=== PATIENT | male | born 1960 | race African-American/Black ===

== ENCOUNTER 2018-08-29 14:50 | Emergency (ER) | payer OTHER ==
[2018-08-29 15:59] LABS: Absolute Lymphocytes (CBC) 3.3 K/uL (0.7-4.9); Absolute Monocytes 1.1 K/uL (0.1-1.3); Absolute Neutrophil 7.8 K/uL (1.8-8.0); Basophils % 0.6 % (0-1.3); Eosinophils % 1.4 % (0-4.4); Hematocrit 39.2 % (39.6-49.0); Lymphocytes % 26.3 % (15.3-44.8); MCH 32.9 pg (27.0-35.0); MCV 99.1 fL (80-100); MPV 10.4 fL (7.6-11.3); RBC Red Blood Cell Count 3.96 M/uL (4.33-5.43)
[2018-08-29 16:01] LABS: Protime INR 0.94
[2018-08-29 16:25] LABS: ALT/SGPT 25 U/L (12-78); AST/SGOT 12 U/L (15-37); Albumin 3.4 g/dL (3.4-5.0); Alkaline Phosphatase 97 U/L (45-117); BUN Blood Urea Nitrogen 40 mg/dL (7-18); Bicarbonate 23 mmol/L (21-32); Bilirubin Direct < 0.1 mg/dL (0-0.2); Bilirubin Total 0.2 mg/dL (0.2-1.0); Glucose Level 122 mg/dL (74-106); Magnesium 2.2 mg/dL (1.8-2.4); NT PRO-BNP 71 pg/mL (<125); Potassium 4.1 mmol/L (3.5-5.1); Protein, Total 7.4 g/dL (6.4-8.2); Sodium Level 140 mmol/L (136-145); Troponin (Emerg Dept Use Only) < 0.02 ng/mL (0.0-0.045)
--- NOTE | 2018-08-29 17:05 | RAD REPORT ---
EXAM DESCRIPTION: RAD - Chest Single View - 08/29/2018 4:51 pm CLINICAL HISTORY: Shortness of breath, renal disease COMPARISON: March 2018 TECHNIQUE: AP portable chest image was obtained 1645 hours . FINDINGS: Lung volumes are low. No peripheral mass, consolidation or failure. Heart and vasculature are normal. No measurable pleural effusion and no pneumothorax. No acute bony abnormality seen. No ac nez perce aortic findings suspected. Right hemidiaphragm elevation is present accentuated by shallow inspir ation. IMPRESSION: Shallow inspiration showing no acute cardiopulmonary finding.
[2018-08-29] MEDS ORDERED: NA CHLORIDE 0.9% 500 ML ONE (17:16)
[2018-08-29] MEDS ORDERED: MORPHINE 4 MG/ML SYR ONE (17:16)
[2018-08-29] MEDS ORDERED: ONDANSETRON 4 MG/2 ML VIAL ONE (17:16)
--- NOTE | 2018-08-29 18:01 | ER ---
Nurse's Notes [facility] Name: Jared Peterson Age: 57 yrs Sex: Male : 1960 Arrival Date: 08/29/2018 Time: 14:55 Bed 16 Private MD: Ricky Peacock Diagnosis: Chronic kidney disease, unspecified Presentation: 08/29 15:13 Presenting complaint: Patient states: went to infectious dse doc, lab was taken hj yesterday, creatinine- 1.8; K- 6.0; GFR- 47; BUN- 40; was referred here for the above results; pt denies any complaints; hx of HIV;. Transition of care: patient was not received from another setting of care. Onset of symptoms was August 29, 2018. Risk Assessment: Do you want to hurt yourself or someone else? Patient reports no desire to harm self or others. Initial Sepsis Screen: Does the patient meet any 2 criteria? No. Patient's initial sepsis screen is negative. Does the patient have a suspected source of infection? No. Patient's initial sepsis screen is negative. Care prior to arrival: None. 15:13 Method Of Arrival: Ambulatory 15:13 Acuity: GRACE 3 hj Triage Assessment: 15:18 General: Appears in no apparent distress. uncomfortable, Behavior is calm, cooperative, hj appropriate for age. Pain: Denies pain. Historical: - Allergies: 15:17 No Known Allergies; hj - Home Meds: 15:17 metformin 500 mg Oral tr24 1 tab once daily [Active]; Triumeq 600-50-300 mg oral tab 1 hj tab once daily [Active]; lisinopril-hydrochlorothiazide 20-12.5 mg oral tab 1 tab once daily [Active]; - PMHx: 15:17 Hypertension; Diabetes - NIDDM; HIV; hj - PSHx: 15:17 None; hj - Immunization history:: Adult Immunizations up to date. - Social history:: Smoking status: Patient/guardian denies using tobacco, Patient uses alcohol. - Ebola Screening: : Patient negative for fever greater than or equal to 101.5 degrees Fahrenheit, and additional compatible Ebola Virus Disease symptoms Patient denies exposure to infectious person Patient denies travel to an Ebola-affected area in the 21 days before illness onset. Screenin:17 Abuse screen: Denies threats or abuse. Denies injuries from another. Nutritional hj screening: No deficits noted. Tuberculosis screening: No symptoms or risk factors identified. Fall Risk None identified. Assessment: 15:30 General: Appears in no apparent distress. comfortable, Behavior is calm, cooperative, jl7 appropriate for age. Pain: Denies pain. Neuro: Level of Consciousness is awake, alert, obeys commands, Oriented to person, place, time, situation, Moves all extremities. Full function Gait is steady. Cardiovascular: Denies chest pain, fatigue, nausea, palpitations, Heart tones present Patient's skin is warm and dry. Chest pain is denied. Respiratory: Airway is patent Respiratory effort is even, unlabored, Respiratory pattern is regular, symmetrical, Breath sounds are clear bilaterally. GI: No signs and/or symptoms were reported involving the gastrointestinal system. : No signs and/or symptoms were reported regarding the genitourinary system. EENT: No signs and/or symptoms were reported regarding the EENT system. Derm: Skin is dry, Skin is normal, Skin temperature is warm. Musculoskeletal: No signs and/or symptoms reported regarding the musculoskeletal system. 16:30 Reassessment: Patient appears in no apparent distress at this time. No changes from jl7 previously documented assessment. Patient and/or family updated on plan of care and expected duration. Pain level reassessed. Patient is alert, oriented x 3, equal unlabored respirations, skin warm/dry/pink. 17:30 Reassessment: Patient appears in no apparent distress at this time. No changes from jl7 previously documented assessment. Patient and/or family updated on plan of care and expected duration. Pain level reassessed. Patient is alert, oriented x 3, equal unlabored respirations, skin warm/dry/pink. Vital Signs: 15:18 BP 136 / 55; Pulse 68; Resp 18; Temp 97.4(TE); Pulse Ox 100% on R/A; Weight 111.13 kg; hj Height 5 ft. 6 in. (167.64 cm); Pain 0/10; 16:20 BP 137 / 63; Pulse 63; Resp 18 S; Pulse Ox 99% on R/A; Pain 0/10; jl7 17:45 BP 135 / 60; Pulse 75; Resp 16 S; Pulse Ox 100% on R/A; Pain 0/10; jl7 15:18 Body Mass Index 39.54 (111.13 kg, 167.64 cm) hj ED Course: 14:55 Patient arrived in ED. mr 14:56 Ricky Peacock DO is Private Physician. mr 15:15 Triage completed. hj 15:18 Arm band placed on left wrist. hj 15:18 Patient has correct armband on for positive identification. Placed in gown. Bed in low hj position. Call light in reach. Side rails up X 1. Adult w/ patient. 15:21 Fly Dalton PA is PHCP. cp 15:21 Chet Henderson MD is Attending Physician. cp 15:27 Gilma Douglas, RN is Primary Nurse. jl7 15:39 EKG done, by telecommunications switch technician. reviewed by Fly DE JESUS. 3 15:45 Initial lab(s) drawn, by me, sent to lab. jl7 16:51 XRAY Chest (1 view) In Process Unspecified. EDMS 17:45 No provider procedures requiring assistance completed. Patient did not have IV access jl7 during this emergency room visit. 17:59 Ricky Peacock DO is Referral Physician. cp 17:59 Referral Physician role handed off by Ricky Peacock DO cp 18:00 Ceasar Villatoro MD is Referral Physician. cp Administered Medications: 18:24 Not Given (Physician Discretion): NS 0.9% 500 ml 500 ml IV at 1 bolus once; 500 ml bolusjl7 Outcome: 17:45 Discharged to home ambulatory. jl7 17:45 Condition: stable 17:45 Discharge instructions given to patient, family, Instructed on discharge instructions, follow up and referral plans. Demonstrated understanding of instructions, follow-up care. 18:00 Discharge ordered by MD. cp 18:26 Patient left the ED. jl7 Signatures: Dispatcher [employer] EDKS NaborJanieaquinYan, RN RN Fly Gamble PA PA cp Gilma Douglas, MARGE RN jl7 Yessica Eduardo 3 Corrections: (The following items were deleted from the chart) 15:17 15:13 Presenting complaint: Patient states: went to infectious dse doc, lab was taken hj yesterday, creatinine- 1.8; K- 6.0; GFR- 47; BUN- 40; was referred here for the above results; pt denies any complaints; hj 15:21 15:18 Pulse 68bpm; Resp 18bpm; Pulse Ox 100% RA; Temp 97.4F Temporal; 111.13 kg; Height hj 5 ft. 6 in.; BMI: 39.5; Pain 0/10; hj
--- NOTE | 2018-08-29 18:01 | EDPHYS ---
Physician Documentation [facility] Name: Jared Peterson Age: 57 yrs Sex: Male : 1960 Arrival Date: 08/29/2018 Time: 14:55 Bed 16 Private MD: [facility] ED Physician Chet Henderson HPI: 08/29 16:00 This 57 yrs old Black Male presents to ER via Ambulatory with complaints of Abnormal cp Lab Results. 16:00 elevated serum potassium. cp 16:00 Onset: The symptoms/episode began/occurred at an unknown time. Severity of symptoms: in cp the emergency department the symptoms none. Historical: - Allergies: 15:17 No Known Allergies; hj - Home Meds: 15:17 metformin 500 mg Oral tr24 1 tab once daily [Active]; Triumeq 600-50-300 mg oral tab 1 hj tab once daily [Active]; lisinopril-hydrochlorothiazide 20-12.5 mg oral tab 1 tab once daily [Active]; - PMHx: 15:17 Hypertension; Diabetes - NIDDM; HIV; hj - PSHx: 15:17 None; hj - Immunization history:: Adult Immunizations up to date. - Social history:: Smoking status: Patient/guardian denies using tobacco, Patient uses alcohol. - Ebola Screening: : Patient negative for fever greater than or equal to 101.5 degrees Fahrenheit, and additional compatible Ebola Virus Disease symptoms Patient denies exposure to infectious person Patient denies travel to an Ebola-affected area in the 21 days before illness onset. ROS: 16:05 Constitutional: Negative for body aches, chills, fever, poor PO intake. cp 16:05 Eyes: Negative for injury, pain, redness, and discharge. cp 16:05 ENT: Negative for drainage from ear(s), ear pain, sore throat, difficulty swallowing, difficulty handling secretions. 16:05 Cardiovascular: Negative for chest pain, edema, palpitations. 16:05 Respiratory: Negative for cough, shortness of breath, wheezing. 16:05 Abdomen/GI: Negative for abdominal pain, nausea, vomiting, and diarrhea, black/tarry stool, rectal bleeding. 16:05 Skin: Negative for cellulitis, rash. 16:05 Neuro: Negative for altered mental status, headache, syncope, weakness. 16:05 All other systems are negative. Exam: 15:35 ECG was reviewed by the Attending Physician. cp 16:10 Constitutional: The patient appears in no acute distress, alert, awake, cp non-diaphoretic, non-toxic, well developed, well nourished. 16:10 Head/Face: Normocephalic, atraumatic. cp 16:10 Eyes: Periorbital structures: appear normal, Conjunctiva: normal, no exudate, no injection, Sclera: no appreciated abnormality, Lids and lashes: appear normal, bilaterally. 16:10 ENT: External ear(s): are unremarkable, Nose: is normal, Mouth: Lips: moist, Oral mucosa: pink and intact, moist, Posterior pharynx: is normal, airway is patent, no erythema, no exudate. 16:10 Chest/axilla: Inspection: normal, Palpation: is normal, no crepitus, no tenderness. 16:10 Cardiovascular: Rate: normal, Rhythm: regular. 16:10 Respiratory: the patient does not display signs of respiratory distress, Respirations: normal, no use of accessory muscles, no retractions, no splinting, no tachypnea, labored breathing, is not present, Breath sounds: are clear throughout, no decreased breath sounds, no stridor, no wheezing. 16:10 Abdomen/GI: Inspection: abdomen appears normal, Palpation: abdomen is soft and non-tender, in all quadrants, rebound tenderness, is not appreciated, voluntary guarding, is not appreciated, involuntary guarding, is not appreciated. 16:10 Back: pain, is absent, ROM is normal. 16:10 Skin: cellulitis, is not appreciated, no rash present. 16:10 Neuro: Orientation: to person, place \T\ time. Mentation: lucid, able to follow commands, Cerebellar function: is grossly normal, Motor: moves all fours, strength is normal, Sensation: is normal. Vital Signs: 15:18 BP 136 / 55; Pulse 68; Resp 18; Temp 97.4(TE); Pulse Ox 100% on R/A; Weight 111.13 kg; hj Height 5 ft. 6 in. (167.64 cm); Pain 0/10; 16:20 BP 137 / 63; Pulse 63; Resp 18 S; Pulse Ox 99% on R/A; Pain 0/10; jl7 17:45 BP 135 / 60; Pulse 75; Resp 16 S; Pulse Ox 100% on R/A; Pain 0/10; jl7 15:18 Body Mass Index 39.54 (111.13 kg, 167.64 cm) MDM: 15:21 Patient medically screened. cp 16:00 Differential Diagnosis acute on chronic renal failure, cardiac arrythmia, hyperkalemia. cp 17:58 Data reviewed: vital signs, nurses notes, lab test result(s), EKG, radiologic studies, cp plain films. 17:58 Test interpretation: by ED physician or midlevel provider: ECG, plain radiologic cp studies. Counseling: I had a detailed discussion with the patient and/or guardian regarding: the historical points, exam findings, and any diagnostic results supporting the discharge/admit diagnosis, lab results, radiology results, the need for outpatient follow up, nephrology, to return to the emergency department if symptoms worsen or persist or if there are any questions or concerns that arise at home. 08/29 15:45 Order name: Basic Metabolic Panel; Complete Time: 16:27 08/29 16:27 Interpretation: Normal except: CL 109; GLUC 122; BUN 40; CRE 1.90; GFR 45. 08/29 15:45 Order name: CBC with Diff; Complete Time: 16:27 08/29 16:28 Interpretation: Normal except: WBC 12.4; RBC 3.96; HGB 13.0; HCT 39.2. 08/29 15:45 Order name: LFT's; Complete Time: 16:27 08/29 16:28 Interpretation: Normal except: AST 12; GLOB 4.0; A/G 0.9. 08/29 15:45 Order name: Magnesium; Complete Time: 16:27 08/29 15:45 Order name: NT PRO-BNP; Complete Time: 16:27 08/29 15:45 Order name: PT-INR; Complete Time: 16:27 08/29 15:20 Order name: EKG; Complete Time: 15:21 08/29 15:45 Order name: Troponin (emerg Dept Use Only); Complete Time: 16:27 08/29 15:45 Order name: Cardiac monitoring; Complete Time: 15:58 08/29 15:45 Order name: EKG - Nurse/Tech; Complete Time: 15:58 08/29 15:46 Order name: XRAY Chest (1 view); Complete Time: 17:10 08/29 17:10 Interpretation: Report review. 08/29 16:31 Order name: Urine Microscopic Only 08/29 17:49 Order name: Urine Dipstick--Ancillary (enter results) 08/29 15:45 Order name: IV Saline Lock; Complete Time: 18:24 08/29 15:45 Order name: Labs collected and sent; Complete Time: 15:57 08/29 15:45 Order name: O2 Per Protocol; Complete Time: 15:57 08/29 15:45 Order name: O2 Sat Monitoring; Complete Time: 15:57 08/29 16:31 Order name: Urine Dipstick-Ancillary (obtain specimen); Complete Time: 17:54 cp EC:35 Rate is 63 beats/min. Rhythm is regular. OR interval is normal. QRS interval is normal. cp QT interval is normal. T waves are Inverted in lead aVL. Interpreted by me. Reviewed by me. Administered Medications: 18:24 Not Given (Physician Discretion): NS 0.9% 500 ml 500 ml IV at 1 bolus once; 500 ml [id number] Disposition: 18:41 Co-signature as Attending Physician, Chet Henderson MD I agree with the assessment and kdr plan of care. Disposition: 08/29/18 18:00 Discharged to Home. Impression: Chronic kidney disease, unspecified. - Condition is Stable. - Discharge Instructions: Chronic Kidney Disease, Adult. - Medication Reconciliation Form, Thank You Letter, Antibiotic Education, Prescription Opioid Use form. - Follow up: Ricky Peacock DO; When: 1 - 2 days; Reason: Recheck today's complaints. Follow up: Ceasar Villatoro MD; When: 1 - 2 days; Reason: Recheck today's complaints. - Problem is an ongoing problem. - Symptoms are unchanged. Signatures: Dispatcher [employer] EDNE Chet Henderson MD MD [facility] Yan Boswell RN RN Fly Gamble PA PA cp Leal, Jahala RN RN jl7 Corrections: (The following items were deleted from the chart) 18:26 18:00 08/29/2018 18:00 Discharged to Home. Impression: Chronic kidney disease, jl7 unspecified. Condition is Stable. Forms are Medication Reconciliation Form, Thank You Letter, Antibiotic Education, Prescription Opioid Use. Follow up: Ceasar Villatoro; When: 1 - 2 days; Reason: Recheck today's complaints. Problem is an ongoing problem. Symptoms are unchanged. cp
[2018-08-29 19:02] LABS: Urine Blood TRACE (NEG); Urine Glucose NEGATIVE (NEG); Urine Protein NEGATIVE (NEG)
[2018-08-29 19:10] LABS: Urine Bacteria 20-50 /HPF (NONE SEEN); Urine RBC NONE SEEN /HPF (NONE SEEN)
[2018-08-29 19:11] LABS: Urine Culture Reflex Order REFLEXED
--- NOTE | 2018-08-30 09:25 | EKG ---
Test Date: 2018-08-29 Test Time: 15:29:32 Cytology Manager: YONNY MEASUREMENT RESULTS: Intervals: Rate: 63 MO: 148 QRSD: 82 QT: 406 QTc: 415 [place]: P: 56 MO: 148 QRS: 24 T: 57 INTERPRETIVE STATEMENTS: Normal sinus rhythm Normal ECG No previous ECG available for comparison Electronically Signed On 08-30-18 09:24:47 ELECTRONIC LAB TECHNICIAN by Miles Washington
== END 2018-08-29 18:26 | disposition home or self-care (01) ==
LOC: ER 14:50
DX: I12.9 Hypertensive chronic kidney disease with stage 1 through stage 4 chronic kidney disease, or unspecified chronic kidney disease (principal); E11.22 Type 2 diabetes mellitus with diabetic chronic kidney disease; N18.9 Chronic kidney disease, unspecified; Z21 Asymptomatic human immunodeficiency virus [HIV] infection status
CPT/HCPCS: 36415; 71045; 80048; 80076; 81003; 81015; 83735; 83880; 84484; 85025; 85610; 87086; 87088; 93005; 99283; J2405

== ENCOUNTER 2022-01-11 13:05 | Observation (INO) | payer OTHER ==
--- OUTSIDE RECORDS SUMMARY | 2022-01-11 13:09 | XMS REPORT | Continuity of Care Document ---
:1960 Author Organization [facility] t Address [address] [place] [address] Care Team Providers Name Role Phone ELIAS MARTIN Primary Care Physician Unavailable Ayush Attending Clinician Unavailable GAEL Attending Clinician Unavailable Gael ANDERSON Attending Clinician Doctor Unassigned, Name Attending Clinician Unavailable Doc ALEJANDRO Attending Clinician Unavailable Radiology Attending Clinician Unavailable RADIOLOGY Attending Clinician Unavailable Dangelo MARTIN Attending Clinician Unavailable Dangelo Martin MD Attending Clinician GAEL Admitting Clinician Unavailable Payers Payer Name Policy Type Policy Number Effective Date Expiration Date [facility] [id number] 2020 MEDICAID 00:00:00 Problems Condition Condition Condition Status Onset Resolution Last Treating Co mments Source Name Details Category Date Date Treatment Clinician Date Essential Essential Disease Active Uni vers hypertensi hypertensi 04-08 it y of on on 00:00: [address] Type 2 Type 2 Disease Active Univers diabetes diabetes 04-08 ity of mellitus mellitus 00:00: [place] without without 00 Medical complicati complicati Br anch on, on, without without long-term long-term current current use of use of insulin insulin Erectile Erectile Disease Active Unive rs dysfunctio dysfunctio 04-08 it y of n, n, 00:00: [place] unspecifie unspecifie 00 Me dical d erectile d erectile Br anch dysfunctio dysfunctio n type n type Asymptomat Asymptomat Disease Active U nivers ic HIV ic HIV 04-08 it[facility] Hyperlipid Hyperlipid Disease Active U nivers emia, emia, 04-08 ity of unspecif[place] Medical hyperlipid hyperlipid Br anch emia type emia type Erectile Erectile Disease Active Unive rs dysfunctio dysfunctio 04-08 it y of n, n, 00:00: [place] unspecifie unspecifie 00 Me dical d erectile d erectile Br anch dysfunctio dysfunctio n type n type Low back [facility] HTN, goal HTN, goal Problem Active [facility] below below [facility] 130/80 130/80 [facility] Tobacco Tobacco Problem Active [facility] use use [facility] disorder disorder [facility] Other Other Problem Active [facility] chronic chronic [facility] Uncontroll Uncontroll Problem Active [facility] ed ed [facility] diabetes diabetes Memori a mellitus mellitus l type 2 type 2 Outpati without without ent complicati complicati Cl inics ons, ons, unspecifie unspecifie d whether d 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 use HIV HIV Problem Active [facility] positive positive [facility] Adult BMI Adult BMI Problem Active [facility] 38.0-38.9 38.0-38.9 Luke s - kg/sq m kg/sq m [facility] Type 2 Type [address] [facility] diabetes diabetes [facility] - mellitus mellitus Memori a with with l diabetic diabetic Outpat i chronic chronic ent kidney kidney Clinics disease disease Chronic Chronic Problem Active [facility] kidney kidney [facility] - disease, disease, Memori a stage III stage III l (moderate) (moderate) Ou tpati ent Clinics Leukocytos Leukocytos Problem Active [facility] is, is, [facility] - unspecifie unspecifie Me moria d type d type l Outpati ent Clinics Erectile Erectile Problem Active [facility] dysfunctio dysfunctio Katharine kes - n, n, Memoria unspecifie unspecifie l d erectile d erectile Ou tpati dysfunctio dysfunctio en t n type n type Clinics History of History of Problem Active [facility] drug abuse drug abuse Katharine kes - [facility] Clin[facility] Allergies, Adverse Reactions, Alerts Allergy Allergy Status Severity Reaction(s) Onset Inactive Treating Comm ents Source Name Type Date Date Clinician NO KNOWN Drug Active Univers ALLERGIE Class ity of S [facility] Social History Social Habit Start Date Stop Date Quantity Comments Source Exposure to Not sure [facility] SARS-CoV-2 Medical Branch (event) History of Cigar Smoker Coleman o f [place] tobacco use Medical Bran h Tobacco use and 2020-04-08 2020-04-08 Never used [employer] [facility] [employer] [facility] exposure 00:00:00 00:00:00 Medical Branch Sex [birth year] [facility] 00:00:00 00:00:00 Medical Branch Smoking Status Start Date Stop Date Source Unknown if ever smoked [facility] Current some day smoker 2020-04-08 00:00:00 [facility] Medications Ordered Filled Start Stop Current Ordering Indication Dosage Frequency Signature Comments Components Source Medication Medication Date Date Medication? Clinician (SIG) Name Name atorvastati 0 Yes [id number] 10mg Take 1 Univers n 10 mg 7-23 tablet by ity of tablet 00:00: mouth at [place] [address] bedtime. Medical Branch lisinopril 2020-0 Yes [id number] TK 1 T PO Univers 40 mg 7-23 QD ity of tablet 00:00: [place] 00 Medical Branch linaGLIPtin 2020-0 Yes [id number] TK 1 T PO Univers (TRADJENTA) 7-23 QD ity of 5 mg tablet 00:00: [place] 00 Medical Branch sildenafil 2020-0 Yes [id number] 100mg Take 1 Univers 100 mg 7-23 tablet by ity of tablet 00:00: mouth [place] 00 daily. Medical Branch amLODIPine 2020-0 Yes [id number] TK 1 T PO Univers 2.5 mg 7-23 QD ity of tablet 00:00: [place] 00 Medical Branch atorvastati 2020-0 Yes [id number] 10mg Take 1 Univers n 10 mg 7-23 tablet by ity of tablet 00:00: mouth at [place] 00 bedtime. Medical Branch lisinopril 2020-0 Yes [id number] TK 1 T PO Univers 40 mg 7-23 QD ity of tablet 00:00: [place] 00 Medical Branch linaGLIPtin 2020-0 Yes [id number] TK 1 T PO Univers (TRADJENTA) 7-23 QD ity of 5 mg tablet 00:00: [place] 00 Medical Branch sildenafil 2020-0 Yes [id number] 100mg Take 1 Univers 100 mg 7-23 tablet by ity of tablet 00:00: mouth [place] 00 daily. Medical Branch amLODIPine 2020-0 Yes [id number] TK 1 T PO Univers 2.5 mg 7-23 QD ity of tablet 00:00: [place] 00 Medical Branch atorvastati 2020-0 Yes [id number] 10mg Take 1 Univers n 10 mg 7-23 tablet by ity of tablet 00:00: mouth at [place] 00 bedtime. Medical Branch lisinopril 2020-0 Yes [id number] TK 1 T PO Univers 40 mg 7-23 QD ity of tablet 00:00: [place] 00 Medical Branch linaGLIPtin 2020-0 Yes [id number] TK 1 T PO Univers (TRADJENTA) 7-23 QD ity of 5 mg tablet 00:00: [place] 00 Medical Branch sildenafil 2020-0 Yes [id number] 100mg Take 1 Univers 100 mg 7-23 tablet by ity of tablet 00:00: mouth [place] 00 daily. Medical Branch amLODIPine 2020-0 Yes [id number] TK 1 T PO Univers 2.5 mg 7-23 QD ity of tablet 00:00: [place] 00 Medical Branch atorvastati 2020-0 Yes [id number] 10mg Take 1 Univers n 10 mg 7-23 tablet by ity of tablet 00:00: mouth at [place] 00 bedtime. Medical Branch lisinopril 2020-0 Yes [id number] TK 1 T PO Univers 40 mg 7-23 QD ity of tablet 00:00: [place] 00 Medical Branch linaGLIPtin 2020-0 Yes [id number] TK 1 T PO Univers (TRADJENTA) 7-23 QD ity of 5 mg tablet 00:00: [place] 00 Medical Branch sildenafil 2020-0 Yes [id number] 100mg Take 1 Univers 100 mg 7-23 tablet by ity of tablet 00:00: mouth [place] 00 daily. Medical Branch amLODIPine 2020-0 Yes [id number] TK 1 T PO Univers 2.5 mg 7-23 QD ity of tablet 00:00: [place] 00 Medical Branch atorvastati 2020-0 Yes [id number] 10mg Take 1 Univers n 10 mg 7-23 tablet by ity of tablet 00:00: mouth at [place] 00 bedtime. Medical Branch lisinopril 2020-0 Yes [id number] TK 1 T PO Univers 40 mg 7-23 QD ity of tablet 00:00: [place] 00 Medical Branch linaGLIPtin 2020-0 Yes [id number] TK 1 T PO Univers (TRADJENTA) 7-23 QD ity of 5 mg tablet 00:00: [place] 00 Medical Branch sildenafil 2020-0 Yes [id number] 100mg Take 1 Univers 100 mg 7-23 tablet by ity of tablet 00:00: mouth [place] 00 daily. Medical Branch amLODIPine 2020-0 Yes [id number] TK 1 T PO Univers 2.5 mg 7-23 QD ity of tablet 00:00: [place] 00 Medical Branch atorvastati 2020-0 Yes [id number] 10mg Take 1 Univers n 10 mg 7-23 tablet by ity of tablet 00:00: mouth at [place] [address] bedtime. Medical Branch lisinopril 2020-0 Yes [id number] TK 1 T PO Univers 40 mg 7-23 QD ity of tablet 00:00: [place] 00 Medical Branch linaGLIPtin 2020-0 Yes [id number] TK 1 T PO Univers (TRADJENTA) 7-23 QD ity of 5 mg tablet 00:00: [place] 00 Medical Branch sildenafil 2020-0 Yes [id number] 100mg Take 1 Univers 100 mg 7-23 tablet by ity of tablet 00:00: mouth [place] 00 daily. Medical Branch amLODIPine 2020-0 Yes [id number] TK 1 T PO Univers 2.5 mg 7-23 QD ity of tablet 00:00: [place] 00 Medical Branch atorvastati 2020-0 Yes [id number] 10mg Take 1 Univers n 10 mg 7-23 tablet by ity of tablet 00:00: mouth at [place] 00 bedtime. Medical Branch lisinopril 2020-0 Yes [id number] TK 1 T PO Univers 40 mg 7-23 QD ity of tablet 00:00: [place] 00 Medical Branch linaGLIPtin 2020-0 Yes [id number] TK 1 T PO Univers (TRADJENTA) 7-23 QD ity of 5 mg tablet 00:00: [place] 00 Medical Branch sildenafil 2020-0 Yes [id number] 100mg Take 1 Univers 100 mg 7-23 tablet by ity of tablet 00:00: mouth [place] 00 daily. Medical Branch amLODIPine 2020-0 Yes [id number] TK 1 T PO Univers 2.5 mg 7-23 QD ity of tablet 00:00: [place] 00 Medical Branch atorvastati 2020-0 Yes [id number] 10mg Take 1 Univers n 10 mg 7-23 tablet by ity of tablet 00:00: mouth at [place] [address] bedtime. Medical Branch lisinopril 2020-0 Yes [id number] TK 1 T PO Univers 40 mg 7-23 QD ity of tablet 00:00: [place] 00 Medical Branch linaGLIPtin 2020-0 Yes [id number] TK 1 T PO Univers (TRADJENTA) 7-23 QD ity of 5 mg tablet 00:00: [place] 00 Medical Branch sildenafil 2020-0 Yes [id number] 100mg Take 1 Univers 100 mg 7-23 tablet by ity of tablet 00:00: mouth [place] 00 daily. Medical Branch amLODIPine 2020-0 Yes [id number] TK 1 T PO Univers 2.5 mg 7-23 QD ity of tablet 00:00: [place] 00 Medical Branch atorvastati 2020-0 Yes [id number] 10mg Take 1 Univers n 10 mg 7-23 tablet by ity of tablet 00:00: mouth at [place] [address] bedtime. Medical Branch lisinopril 2020-0 Yes [id number] TK 1 T PO Univers 40 mg 7-23 QD ity of tablet 00:00: [place] 00 Medical Branch linaGLIPtin 2020-0 Yes [id number] TK 1 T PO Univers (TRADJENTA) 7-23 QD ity of 5 mg tablet 00:00: [place] 00 Medical Branch sildenafil 2020-0 Yes [id number] 100mg Take 1 Univers 100 mg 7-23 tablet by ity of tablet 00:00: mouth [place] 00 daily. Medical Branch amLODIPine 2020-0 Yes [id number] TK 1 T PO Univers 2.5 mg 7-23 QD ity of tablet 00:00: [place] 00 Medical Branch atorvastati 2020-0 Yes [id number] 10mg Take 1 Univers n 10 mg 7-23 tablet by ity of tablet 00:00: mouth at [place] [address] bedtime. Medical Branch lisinopril 2020-0 Yes [id number] TK 1 T PO Univers 40 mg 7-23 QD ity of tablet 00:00: [place] 00 Medical Branch linaGLIPtin 2020-0 Yes [id number] TK 1 T PO Univers (TRADJENTA) 7-23 QD ity of 5 mg tablet 00:00: [place] 00 Medical Branch sildenafil 2020-0 Yes [id number] 100mg Take 1 Univers 100 mg 7-23 tablet by ity of tablet 00:00: mouth [place] 00 daily. Medical Branch amLODIPine 2020-0 Yes [id number] TK 1 T PO Univers 2.5 mg 7-23 QD ity of tablet 00:00: [place] 00 Medical Branch atorvastati 2020-0 Yes [id number] 10mg Take 1 Univers n 10 mg 7-23 tablet by ity of tablet 00:00: mouth at [place] 00 bedtime. Medical Branch lisinopril 2020-0 Yes [id number] TK 1 T PO Univers 40 mg 7-23 QD ity of tablet 00:00: [place] 00 Medical Branch linaGLIPtin 2020-0 Yes [id number] TK 1 T PO Univers (TRADJENTA) 7-23 QD ity of 5 mg tablet 00:00: [place] 00 Medical Branch sildenafil 2020-0 Yes [id number] 100mg Take 1 Univers 100 mg 7-23 tablet by ity of tablet 00:00: mouth [place] 00 daily. Medical Branch amLODIPine 2020-0 Yes [id number] TK 1 T PO Univers 2.5 mg 7-23 QD ity of tablet 00:00: [place] 00 Medical Branch atorvastati 2020-0 Yes [id number] 10mg Take 1 Univers n 10 mg 7-23 tablet by ity of tablet 00:00: mouth at [place] [address] bedtime. Medical Branch lisinopril 2020-0 Yes [id number] TK 1 T PO Univers 40 mg 7-23 QD ity of tablet 00:00: [place] 00 Medical Branch linaGLIPtin 2020-0 Yes [id number] TK 1 T PO Univers (TRADJENTA) 7-23 QD ity of 5 mg tablet 00:00: [place] 00 Medical Branch sildenafil 2020-0 Yes [id number] 100mg Take 1 Univers 100 mg 7-23 tablet by ity of tablet 00:00: mouth [place] 00 daily. Medical Branch amLODIPine 2020-0 Yes [id number] TK 1 T PO Univers 2.5 mg 7-23 QD ity of tablet 00:00: [place] 00 Medical Branch atorvastati 2020-0 Yes [id number] 10mg Take 1 Univers n 10 mg 7-23 tablet by ity of tablet 00:00: mouth at [place] 00 bedtime. Medical Branch lisinopril 2020-0 Yes [id number] TK 1 T PO Univers 40 mg 7-23 QD ity of tablet 00:00: [place] 00 Medical Branch linaGLIPtin 2020-0 Yes [id number] TK 1 T PO Univers (TRADJENTA) 7- QD ity of 5 mg tablet 00:00: [place] 00 Medical Branch sildenafil 2020-0 Yes [id number] 100mg Take 1 Univers 100 mg - tablet by ity of tablet 00:00: mouth [place] [address] daily. Medical Branch amLODIPine 2019-0 Yes [id number] TK 1 T PO Univers 2.5 mg 04-08 QD ity of tablet 00:00: [place] 00 Medical Branch lisinopril 2019-0 2020- No TK 1 T PO U nivers 40 mg 03-30 QD ity of tablet 00:00: 00:00 [place] 00 :00 Medical Branch lisinopril 2019-0 2020- No TK 1 T PO U nivers 40 mg 03-30 QD ity of tablet 00:00: 00:00 [place] 00 :00 Medical Branch BIKTARVY 2020-0 Yes TK 1 T PO Univ ers 50-200-25 7-13 D ity of mg tablet 00:00: [place] 00 Medical Branch BIKTARVY 2020-0 Yes TK 1 T PO Univ ers 50-200-25 7-13 D ity of mg tablet 00:00: [place] 00 Medical Branch BIKTARVY 2020-0 Yes TK 1 T PO Univ ers 50-200-25 7-13 D ity of mg tablet 00:00: [place] 00 Medical Branch BIKTARVY 2020-0 Yes TK 1 T PO Univ ers 50-200-25 7-13 D ity of mg tablet 00:00: [place] 00 Medical Branch BIKTARVY 2020-0 Yes TK 1 T PO Univ ers 50-200-25 7-13 D ity of mg tablet 00:00: [place] 00 Medical Branch BIKTARVY 2020-0 Yes TK 1 T PO Univ ers 50-200-25 7-13 D ity of mg tablet 00:00: [place] 00 Medical Branch BIKTARVY 2020-0 Yes TK 1 T PO Univ ers 50-200-25 7-13 D ity of mg tablet 00:00: [place] 00 Medical Branch BIKTARVY 2020-0 Yes TK 1 T PO Univ ers 50-200-25 7-13 D ity of mg tablet 00:00: [place] 00 Medical Branch BIKTARVY 2020-0 Yes TK 1 T PO Univ ers 50-200-25 7-13 D ity of mg tablet 00:00: [place] 00 Medical Branch BIKTARVY 2019-0 Yes TK 1 T PO Univ ers 50-200-25 7-13 D ity of mg tablet 00:00: [place] 00 Medical Branch BIKTARVY 2019-0 Yes TK 1 T PO Univ ers 50-200-25 7-13 D ity of mg tablet 00:00: [place] 00 Medical Branch BIKTARVY 2019-0 Yes TK 1 T PO Univ ers 50-200-25 7-13 D ity of mg tablet 00:00: [place] 00 Medical Branch BIKTARVY 2019-0 Yes TK 1 T PO Univ ers 50-200-25 7-13 D ity of mg tablet 00:00: [place] 00 Medical Branch amLODIPine 2019-0 2020- No TK 1 T PO U nivers 2.5 mg 03-29 QD ity of tablet 00:00: 00:00 [place] 00 :00 Medical Branch atorvastati 2019-0 2020- No TK 1 T PO Univers n 10 mg 03-29 QD ity of tablet 00:00: 00:00 [place] 00 :00 Medical Branch TRADJENTA 5 2019-0 2020- No TK 1 T PO Univers mg tablet 03-29 QD ity of 00:00: 00:00 [place] 00 :00 Medical Branch amLODIPine 2019-0 2020- No TK 1 T PO U nivers 2.5 mg 03-29 QD ity of tablet 00:00: 00:00 [place] 00 :00 Medical Branch atorvastati 2019-0 2020- No TK 1 T PO Univers n 10 mg 03-29 QD ity of tablet 00:00: 00:00 [place] 00 :00 Medical Branch TRADJENTA 5 2019-0 2020- No TK 1 T PO Univers mg tablet 03-29 QD ity of 00:00: 00:00 [place] 00 :00 Medical Branch sildenafil 2019-0 2020- No TAKE ONE Un roseann 100 mg 01-28 (1) ity of tablet 00:00: 00:00 TABLET(S) [place] 00 :00 BY MOUTH Medical ONCE A Branch DAY. sildenafil 2019- No TAKE ONE Un roseann 100 mg 01-28 (1) ity of tablet 00:00: 00:00 TABLET(S) [place] 00 :00 BY MOUTH Medical ONCE A Branch DAY. Sildenafil Sildenafil 2019- No Ricky [address] [facility] Citrate Citrate 01-27 [place] as needed Katharine kes - 00:00: 00:00 [facility] 00 :[facility] l [facility] ent Clinics Atorvastati Atorvastati Yes Ricky [address] [facility] n Calcium n Calcium 04-22 [place] Luke s - 00:00: [facility] 00 l [facility]pat[facility] ent Clinics Amlodipine Amlodipine Yes Ricky [address] [facility] Besylate Besylate 10-09 [place] [facility] - [facility]: [facility] Tradjenta Tradjenta Yes Ricky [address] [facility] 10-09 [place] [facility] - 00:[facility]: [facility] Lisinopril Lisinopril Yes Ricky [address] [facility] [place] [facility] Biktarvy Biktarvy Yes Ricky TK [address] [facility] [place] [facility] Immunizations Ordered Filled Immunization Date Status Comments Sour e Immunization Name Name SARS-COV-2 COVID-19 2020-11-18 Completed Unive rsity of MODERNA VACCINE 00:00:00 [facility] SARS-COV-2 COVID-19 2020-11-18 Completed Unive rsity of MODERNA VACCINE 00:00:00 [facility] SARS-COV-2 COVID-19 2020-11-18 Completed Unive rsity of MODERNA VACCINE 00:00:00 [facility] SARS-COV-2 COVID-19 2020-11-18 Completed Unive rsity of MODERNA VACCINE 00:00:00 [facility] SARS-COV-2 COVID-19 2020-11-18 Completed Unive rsity of MODERNA VACCINE 00:00:00 [facility] SARS-COV-2 COVID-19 2020-10-22 Completed Unive rsity of MODERNA VACCINE 00:00:00 [facility] SARS-COV-2 COVID-19 2020-10-22 Completed Unive rsity of MODERNA VACCINE 00:00:00 [facility] SARS-COV-2 COVID-19 2020-10-22 Completed Unive rsity of MODERNA VACCINE 00:00:00 [facility] SARS-COV-2 COVID-19 2020-10-22 Completed Unive rsity of MODERNA VACCINE 00:00:00 [facility] SARS-COV-2 COVID-19 2020-10-22 Completed Unive rsity of MODERNA VACCINE 00:00:00 [facility] Vital Signs Vital Name Observation Time Observation Value Comments Source Systolic blood 2020-04-08 15:19:00 144 mm[Hg] Univer sity of pressure [facility] Diastolic blood 2020-04-08 15:19:00 78 mm[Hg] Unive rsity of [facility] Heart rate 2020-04-08 15:14:00 80 /min [facility] Body temperature 2020-04-08 15:14:00 36.17 Mel [facility] Respiratory rate 2020-04-08 15:14:00 18 /min [facility] Body height 2020-04-08 15:14:00 182.9 cm [facility] Body weight 2020-04-08 15:14:00 110.406 kg [facility] BMI 2020-04-08 15:14:00 33.01 kg/m2 [facility] Procedures Procedure Date / Time Performing Clinician Source Performed CT ABDOMEN PELVIS WO 2021-09-27 15:50:07 Tahir Mayo [facility] ASSIGNMENT OF BENEFITS 2021-09-27 15:31:43 Doctor Unassigned, No [facility] AUTHORIZATION FOR 2021-06-23 05:01:00 Doctor Unassigned, No [facility] XR CHEST 2 VW 2021-03-25 14:38:02 Jo-Ann Mendoza [facility] ASSIGNMENT OF BENEFITS 2021-03-25 14:23:45 Doctor Unassigned, No [facility] DME/SUPPLY JUSTIFICATION 2020-08-31 06:01:00 Doctor Unassigned, No [facility] CONSENT/REFUSAL FOR 2020-04-08 15:08:33 Doctor Unassigned, No Un [facility] DIAGNOSIS AND TREATMENT [facility] ASSIGNMENT OF BENEFITS 2020-04-08 15:08:14 Doctor Unassigned, No [facility] Encounters Start End Encounter Admission Attending Care Care Encounter Source Date/Time Date/Time Type Type Clinicians Facility Department ID 2021-10-12 Outpatient [place], [facility] [id number] [facility] [address] 11:21:33 Ricky [id number] [facility] 2021-10-12 Outpatient [place], [facility] [id number] 11:20:56 Ricky [id number] [facility] 2021-10-12 Outpatient [place], [facility] [id number] 11:07:17 Ricky [id number] [facility] 2021-10-12 Outpatient [place], [facility] [id number] 11:07:06 Ricky [id number] [facility] 2021-10-12 Outpatient [place], [facility] [id number] 11:06:38 Ricky [id number] [facility] 2021-09-27 2021-09-27 Outpatient Joel MAYO [facility] [id number] Univers 09:33:13 23:59:00 TAHIR [facility] 2021-09-27 2021-09-27 [facility] [id number] Univers 09:33:13 23:59:00 Encounter Tahir SO [id number] [facility] [id number] [facility] [id number] [address] 2021-09-27 2021-09-27 [facility] [id number] Univers 10:00:00 10:00:00 TAHIR [id number] [facility] 2021-09-27 2021-09-27 Orders Doctor ROMERO [id number] [id number] Univers 00:00:00 00:00:00 Only Unassigned, LARA [id number] ity of [place] [facility] [id number] Alex as [id number] [facility] 009 Branch 2021-09-23 2021-09-23 Outpatient R GAEL, [facility] [id number] Univers 00:00:00 00:00:00 TAHIR [id number] ity of [facility] 2021-06-23 2021-06-23 Case Siobhan Roach [id number] Univers 00:00:00 00:00:00 Management Nereida Delvalle [id number] ity of [id number] [id number] [facility] [address] [place] 2021-06-23 2021-06-23 Telephone Siobhan Roach [id number] Univers 00:00:00 00:00:00 Nereida Delvalle [id number] it y of [place] 4[place]2.[place] [id number] [facility] [address] [place] 2021-06-23 2021-06-23 Orders Doctor HEATHER 1.2.840.114 [id number] Univers 00:00:00 00:00:00 Only Unassigned, LARA [id number] ity of [place] [facility] [id number] Alex as [id number] [facility] 009 Branch 2021-03-25 2021-03-25 Hospital Radiology [facility] [id number] Univers 09:25:59 23:59:00 Encounter [place] [id number] ity of [place].2.686 [place] [id number] [facility] 807 Branch 2021-03-25 2021-03-25 Outpatient R RADIOLOGY [facility] [id number] Univers 09:30:00 09:30:00 [id number] ity of [facility] 2021-03-25 2021-03-25 Outpatient R RADIOLOGY [facility] [id number] Univers 00:00:00 00:00:00 ity of [facility] 2021-03-25 2021-03-25 Orders Doctor HEATHER [id number] [id number] Univers 00:00:00 00:00:00 Only Unassigned, LARA [id number] ity of [place] [facility] [id number] Alex as [id number] [address] 2020-10-11 2020-10-11 Outpatient R ELIAS MARTIN [facility] [id number] Univers 08:30:00 08:30:00 [id number] ity [facility] 2020-10-11 2020-10-11 Outpatient R ELIAS MARTIN [facility] [id number] Univers 08:30:00 08:30:00 ity [facility] 2020-08-31 2020-08-31 Telephone [place]Elias [place] 1.2.840.114 [id number] Univers 00:00:00 00:00:00 Y Pediatric [id number] ity [id number] [id number] [address] 2020-08-31 2020-08-31 Orders Doctor HEATHER 1.2.840.114 [id number] Univers 00:00:00 00:00:00 Only Unassigned, LARA [id number] ity of [place] [facility] [id number] Alex as [id number] [address] 2020-06-08 2020-06-08 Telephone MartinElias [place] [id number] Univers 00:00:00 00:00:00 Y Pediatric [id number] ity [id number] [id number] [address] 2020-04-08 2020-04-08 Office MartinElias [place] [id number] Univers 10:06:45 10:47:08 Visit Y Pediatric [id number] ity [id number] [id number] [address] 2020-04-08 2020-04-08 Outpatient R MARTIN, ELIAS [facility] [id number] Univers 10:45:00 10:45:00 ity of [facility] 2020-04-08 2020-04-08 Orders Doctor ROMERO 1.2.840.114 [id number] 00:00:00 00:00:00 Only Unassigned, LARA [id number] ity of [place] [facility] [id number] Alex as [id number] [address] 2020-03-15 2020-03-15 [facility] [id number] 08:01:00 08:01:00 t [place] [employer] [facility] [employer] [facility] l Medicine Outpati ent Clinics 2020-01-28 2020-01-28 [facility] [id number] 10:15:00 10:15:00 t [place] [email or web address] [facility] - Drive [facility] l Medicine Outpati ent Clinics 2019-10-29 2019-10-29 [facility] [id number] [facility] 10:00:00 10:00:00 [place] [email or web address] [facility] l Medicine Outpati ent Clinics 2019-10-22 2019-10-22 [facility] [id number] 14:48:00 14:48:00 [place] [employer] - Drive [facility] l Medicine Outpati ent Clinics 2019-07-23 2019-07-23 [facility] [id number] 09:16:00 09:16:00 [place] [email or web address] [facility] l Medicine Outpati ent Clinics 2019-07-23 2019-07-23 [facility] [id number] 08:45:00 08:45:00 [place] [email or web address] - Drive [facility] l Medicine Outpati ent Clinics 2019-04-22 2019-04-22 [facility] [id number] 08:30:00 08:30:00 [place] [email or web address] - Drive [facility] Medicine l Medicine Outpati ent Clinics 2019-01-20 2019-01-20 [facility] [id number] [address] 13:15:00 13:15:00 [place] [address] [facility] 2018-11-05 2018-11-05 [facility] [id number] [address] 08:30:00 08:30:00 [place] [address] [place] [address] [facility] 2018-10-09 2018-10-09 [facility] [id number] [address] 08[facility]15:00 08:15:[address] [place] [address] [place] [facility] 2018-04-09 2018-04-09 [facility] [id number] 08:30:00 08:30:00 [facility] Hospital ent [facility] Results Test Description Test Time Test Results Result Source Comments Comments XR CHEST 2 VW EXAM: XR CHEST 2 VW Un iversity of 9 HISTORY: cough [facility] 14:49:16 COMPARISON: None. Branch FINDINGS: The heart and great vessels are normal and the lungs are clear. The righthemidiaphragm is slightly elevated. ? [facility], Radiant Results Inft User - 03/25/2021 9:50 AM CDT EXAM: XR CHEST 2 VWHISTORY: cough COMPARISON: None.FINDINGS:The heart and great vessels are normal and the lungs are clear. The righthemidiaphragm is slightly elevated.
[2022-01-11 15:38] LABS: Absolute Lymphocytes (CBC) 2.7 K/uL (0.7-4.9); Hematocrit 41.3 % (39.6-49.0); Lymphocytes % 21.5 % (15.3-44.8); MPV 9.8 fL (7.6-11.3); RBC Red Blood Cell Count 4.33 M/uL (4.33-5.43)
[2022-01-11 15:41] LABS: Protime INR 0.99
[2022-01-11 16:19] LABS: Albumin 3.7 g/dL (3.4-5.0); Bilirubin Direct 0.1 mg/dL (0-0.2); Bilirubin Total 0.3 mg/dL (0.2-1.0); Magnesium 2.6 mg/dL (1.8-2.4); Protein, Total 8.1 g/dL (6.4-8.2)
[2022-01-11 16:22] LABS: Potassium 5.6 mmol/L (3.5-5.1)
--- NOTE | 2022-01-11 16:41 | EDPHYS ---
Physician Documentation [facility] Name: Jared Peterson Age: 61 yrs Sex: Male : 1960 Arrival Date: 01/11/2022 Time: 13:10 Bed 13 Private MD: ED Physician Chet Henderson HPI: 01/11 14:45 This 61 yrs old Black Male presents to ER via Ambulatory with complaints of Kidney cp Issue. 14:45 worsening kidney function tests. Onset: The symptoms/episode began/occurred gradually. cp Historical: - Allergies: 13:25 No Known Allergies; ll1 - PMHx: 13:25 Diabetes - NIDDM; HIV; Hypertension; ll1 - PSHx: 13:25 None; ll1 - Immunization history:: Client reports receiving the 2nd dose of the Covid vaccine. - Social history:: Smoking status: Patient denies any tobacco usage or history of. ROS: 14:50 Constitutional: Negative for body aches, chills, fever, poor PO intake. cp 14:50 Eyes: Negative for injury, pain, redness, and discharge. cp 14:50 Cardiovascular: Negative for chest pain, edema, palpitations. 14:50 Respiratory: Negative for cough, shortness of breath, wheezing. 14:50 Abdomen/GI: Negative for abdominal pain, nausea, vomiting, and diarrhea. 14:50 Back: Negative for pain at rest, pain with movement. 14:50 : Negative for urinary symptoms, difficulty urinating, testicular pain 14:50 Neuro: Negative for altered mental status, dizziness, headache, weakness. 14:50 All other systems are negative. Exam: 14:55 Constitutional: The patient appears in no acute distress, alert, awake, cp non-diaphoretic, non-toxic, well developed, well nourished, obese. 14:55 Head/Face: Normocephalic, atraumatic. cp 14:55 Eyes: Periorbital structures: appear normal, Conjunctiva: normal, no exudate, no injection, Sclera: no appreciated abnormality, Lids and lashes: appear normal, bilaterally. 14:55 ENT: External ear(s): are unremarkable, Nose: is normal, Mouth: Lips: moist, Oral mucosa: pink and intact, moist, Posterior pharynx: Airway: no evidence of obstruction, patent. 14:55 Neck: ROM/movement: is normal, is supple, without pain, no range of motions limitations. 14:55 Chest/axilla: Inspection: normal, Palpation: is normal, no crepitus, no tenderness. 14:55 Cardiovascular: Rate: normal, Rhythm: regular, Edema: is not appreciated, JVD: is not appreciated. 14:55 Respiratory: the patient does not display signs of respiratory distress, Respirations: normal, no use of accessory muscles, no retractions, labored breathing, is not present, Breath sounds: are clear throughout, no decreased breath sounds, no stridor, no wheezing. 14:55 Abdomen/GI: Inspection: obese Bowel sounds: active, all quadrants, Palpation: abdomen is soft and non-tender, in all quadrants. 14:55 Back: CVA tenderness, is absent. 14:55 Skin: cellulitis, is not appreciated, no rash present. 14:55 Neuro: Orientation: to person, place \\T\\ time. Mentation: is normal, Motor: moves all fours, strength is normal, Sensation: is normal. 16:05 ECG was reviewed by the Attending Physician. cp Vital Signs: 13:26 BP 145 / 51; Pulse 65; Resp 17; Temp 97.7; Pulse Ox 100% ; Weight 116.12 kg; Height 5 ll1 ft. 9 in. (175.26 cm); Pain 0/10; 16:21 BP 124 / 55; Pulse 70; Resp 18; Pulse Ox 98% on R/A; ph 19:28 BP 128 / 82; Pulse 69; Resp 18; Temp 98.3(O); Pulse Ox 100% on R/A; Pain 0/10; lp1 13:26 Body Mass Index 37.80 (116.12 kg, 175.26 cm) ll1 MDM: 14:17 Patient medically screened. cp 16:40 Data reviewed: vital signs, nurses notes, lab test result(s), EKG. cp 16:40 Differential Diagnosis sepsis, flu, acute on chronic kidney failure, hyperkalemia. Test cp interpretation: by ED physician or midlevel provider: ECG. Counseling: I had a detailed discussion with the patient and/or guardian regarding: the historical points, exam findings, and any diagnostic results supporting the discharge/admit diagnosis, lab results, the need for further work-up and treatment in the hospital. Physician consultation: Paulino Land MD was contacted at 16:30, regarding admission, to the telemetry unit. patient's condition, and will see patient in ED, shortly. 01/11 14:41 Order name: Basic Metabolic Panel; Complete Time: 16:38 cp 01/11 16:27 Interpretation: Normal except: CL 115; BUN 48; CRE 2.36; GFR 34; K 5.6. 01/11 14:41 Order name: CBC with Diff; Complete Time: 16:18 cp 01/11 16:18 Interpretation: Normal except: WBC 12.4; HGB 13.2; NEUT A 8.3. 01/11 14:41 Order name: LFT's; Complete Time: 16:38 01/11 14:41 Order name: Magnesium; Complete Time: 16:38 cp 01/11 14:41 Order name: NT PRO-BNP; Complete Time: 16:38 01/11 14:41 Order name: PT-INR; Complete Time: 16:18 01/11 14:43 Order name: Troponin High Sensitivity; Complete Time: 16:38 01/11 16:19 Order name: Urine Microscopic Only 01/11 16:48 Order name: COVID-19 SARS RT PCR (Document "Date of Onset" if Symptomatic) ph 01/11 17:05 Order name: Creatine Phosphokinase [facility] 01/11 17:05 Order name: Ur Protein EDID 01/11 17:05 Order name: CBC with Automated Diff [facility] 01/11 17:05 Order name: CBC with Automated Diff [facility] 01/11 17:05 Order name: CBC with Automated Diff [facility] 01/11 14:41 Order name: EKG; Complete Time: 14:42 cp 01/11 14:41 Order name: Cardiac monitoring; Complete Time: 16:12 01/11 14:41 Order name: EKG - Nurse/Tech; Complete Time: 16:12 01/11 14:41 Order name: IV Saline Lock; Complete Time: 15:28 cp 01/11 14:41 Order name: Labs collected and sent; Complete Time: 15:28 01/11 14:41 Order name: O2 Per Protocol; Complete Time: 15:28 01/11 17:05 Order name: CONS Physician Consult EDID 01/11 17:05 Order name: 60g Consistent Carbohydrate (ADA 1800/2000) [facility] 01/11 17:05 Order name: CBC with Automated Diff [facility] 01/11 17:05 Order name: Comprehensive Metabolic Panel [facility] 01/11 17:05 Order name: Comprehensive Metabolic Panel [facility] 01/11 17:05 Order name: Comprehensive Metabolic Panel [facility] 01/11 17:05 Order name: Comprehensive Metabolic Panel [facility] 01/11 17:05 Order name: Renal Ultrasound-Complete [facility] 01/11 14:41 Order name: O2 Sat Monitoring; Complete Time: 15:28 cp EC:05 Rate is 62 beats/min. Rhythm is regular. GA interval is normal. QRS interval is normal. cp QT interval is normal. T waves are Inverted in leads aVL, aVR. Interpreted by me. Reviewed by me. Administered Medications: 17:18 Drug: NS 0.9% 500 ml Route: IV; Rate: bolus; Site: right antecubital; ph 18:24 Follow up: Response: No adverse reaction; IV Status: Completed infusion; IV Intake: ph 500ml 18:44 Drug: NS 0.9% 500 ml Route: IV; Rate: 100 ml/hr; Site: right antecubital; ph 18:44 Follow up: IV Status: Infusion continued upon admission ph Disposition Summary: 01/11/22 16:41 Hospitalization Ordered Hospitalization Status: Observation cp Provider: Paulino Land cp Location: Telemetry/MedSurg (observation) cp Condition: Stable cp Problem: an ongoing problem cp Symptoms: are unchanged cp Bed/Room Type: Standard cp Room Assignment: 216(01/11/22 19:52) eb1 Diagnosis - Hyperkalemia cp - Hypertensive heart and chronic kidney disease with heart failure and stage 1 cp through stage 4 chronic kidney disease, or unspecified chronic kidney disease Forms: - Medication Reconciliation Form cp - SBAR form cp Addendum: 01/15/2022 07:26 Co-signature as Attending Physician, Chet Henderson MD I agree with the assessment and k dr plan of care. Signatures: Dispatcher [employer] [facility] Chet Henderson MD MD kdr Hall, Patricia, RN RN ph Fly Dalton PA PA cp Sarah Otoole RN RN eb1 Sergio Lovett RN RN ll1 Corrections: (The following items were deleted from the chart) 01/11 19:52 16:41 cp eb1
--- NOTE | 2022-01-11 16:41 | ER ---
Nurse's Notes [facility] Name: Jared Peterson Age: 61 yrs Sex: Male : 1960 Arrival Date: 01/11/2022 Time: 13:10 Bed 13 Private MD: Diagnosis: Hyperkalemia;Hypertensive heart and chronic kidney disease with heart failure and stage 1 through stage 4 chronic kidney disease, or unspecified chronic kidney disease Presentation: 01/11 13:26 Chief complaint: Patient states: Sent by Dr. Land for possible kidney failure/possible ll1 admission. GFR has gone from 42 in August, to 27 now. K+ 6.1. Coronavirus screen: Vaccine status: Patient reports receiving the 2nd dose of the covid vaccine. Client denies travel out of the [place] in the last 14 days. At this time, the client does not indicate any symptoms associated with coronavirus-19. Ebola Screen: Patient denies travel to an Ebola-affected area in the 21 days before illness onset. Initial Sepsis Screen: Does the patient meet any 2 criteria? No. Patient's initial sepsis screen is negative. Does the patient have a suspected source of infection? No. Patient's initial sepsis screen is negative. Risk Assessment: Do you want to hurt yourself or someone else? Patient reports no desire to harm self or others. Onset of symptoms was January 11, 2022. 13:26 Method Of Arrival: Ambulatory ll1 13:26 Acuity: GRACE 3 ll1 Triage Assessment: 13:28 General: Appears in no apparent distress. Behavior is calm, cooperative. Pain: Denies ll1 pain. Neuro: No deficits noted. Historical: - Allergies: 13:25 No Known Allergies; ll1 - PMHx: 13:25 Diabetes - NIDDM; HIV; Hypertension; ll1 - PSHx: 13:25 None; ll1 - Immunization history:: Client reports receiving the 2nd dose of the Covid vaccine. - Social history:: Smoking status: Patient denies any tobacco usage or history of. Screenin:29 Abuse screen: Denies threats or abuse. Denies injuries from another. Nutritional ph screening: No deficits noted. Tuberculosis screening: No symptoms or risk factors identified. Fall Risk None identified. Assessment: 14:13 Reassessment: No changes from previously documented assessment. Patient and/or family ll1 updated on plan of care and expected duration. Pain level reassessed. Patient is alert, oriented x 3, equal unlabored respirations, skin warm/dry/pink. 15:28 General: Appears in no apparent distress. comfortable, Behavior is calm, cooperative, ph appropriate for age, Denies fever, feeling ill. Pain: Denies pain. Neuro: Level of Consciousness is awake, alert, obeys commands, Oriented to person, place, time, situation. Cardiovascular: Denies chest pain, Capillary refill < 3 seconds in bilateral fingers Patient's skin is warm and dry. Respiratory: Airway is patent Respiratory effort is even, unlabored, Denies shortness of breath. GI: No signs and/or symptoms were reported involving the gastrointestinal system. Derm: Skin is intact, is healthy with good turgor, Skin is pink, warm \T\ dry. Musculoskeletal: Circulation, motion, and sensation intact. Range of motion: intact in all extremities. 16:30 Reassessment: Patient appears in no apparent distress at this time. Patient and/or ph family updated on plan of care and expected duration. Pain level reassessed. Patient is alert, oriented x 3, equal unlabored respirations, skin warm/dry/pink. 17:30 Reassessment: Patient appears in no apparent distress at this time. Patient and/or ph family updated on plan of care and expected duration. Pain level reassessed. Patient is alert, oriented x 3, equal unlabored respirations, skin warm/dry/pink. 18:30 Reassessment: Patient appears in no apparent distress at this time. Patient and/or ph family updated on plan of care and expected duration. Pain level reassessed. Patient is alert, oriented x 3, equal unlabored respirations, skin warm/dry/pink. 19:30 Reassessment: Patient appears in no apparent distress at this time. Patient is alert, lp1 oriented x 3, equal unlabored respirations, skin warm/dry/pink. Patient eating [employer] sandwich, aware of pending admission, waiting for room assignment. Vital Signs: 13:26 BP 145 / 51; Pulse 65; Resp 17; Temp 97.7; Pulse Ox 100% ; Weight 116.12 kg; Height 5 ll1 ft. 9 in. (175.26 cm); Pain 0/10; 16:21 BP 124 / 55; Pulse 70; Resp 18; Pulse Ox 98% on R/A; ph 19:28 BP 128 / 82; Pulse 69; Resp 18; Temp 98.3(O); Pulse Ox 100% on R/A; Pain 0/10; lp1 13:26 Body Mass Index 37.80 (116.12 kg, 175.26 cm) ll1 ED Course: 13:10 Patient arrived in ED. ds1 13:18 Fly Dalton PA is PHCP. cp 13:18 Chet Henderson MD is Attending Physician. cp 13:25 Arm band placed on. ll1 13:28 Triage completed. ll1 14:13 Patient placed in an exam room, on a stretcher. ll1 14:34 Lorri Haider, MARGE is Primary Nurse. ph 15:29 Patient has correct armband on for positive identification. Bed in low position. Call ph light in reach. Side rails up X 1. ring rolling machine operator on. Pulse ox on. NIBP on. Door closed. Noise minimized. 15:30 Initial lab(s) drawn, by me, sent to lab. Inserted saline lock: 22 gauge in right ph antecubital area, using aseptic technique. Blood collected. 16:40 Pauilno Land MD is Hospitalizing Provider. cp 17:19 No provider procedures requiring assistance completed. Patient admitted, IV remains in ph place. Administered Medications: 17:18 Drug: NS 0.9% 500 ml Route: IV; Rate: bolus; Site: right antecubital; ph 18:24 Follow up: Response: No adverse reaction; IV Status: Completed infusion; IV Intake: ph 500ml 18:44 Drug: NS 0.9% 500 ml Route: IV; Rate: 100 ml/hr; Site: right antecubital; ph 18:44 Follow up: IV Status: Infusion continued upon admission ph Intake: 18:24 IV: 500ml; Total: 500ml. ph Outcome: 16:41 Decision to Hospitalize by Provider. cp 20:45 Admitted to Med/surg via wheelchair, room 216, with chart, Report called to MARGE [place] lp1 20:45 Condition: stable 20:45 Instructed on the need for admit. 20:57 Patient left the ED. lp1 Signatures: Brook Hilario ds1 Angi Saavedra RN RN lp1 Lorri Haider RN RN Fly Martinez PA PA cp Lewis, Lynsay, MARGE RN ll1
[2022-01-11] MEDS ORDERED: NA CHLORIDE 0.9% 500 ML ONE (16:53)
[2022-01-11] MEDS ORDERED: HYDRALAZINE HCL 20 MG/ML VIAL IV PRN (16:59)
[2022-01-11] MEDS ORDERED: GLUCAGON 1 MG/VIAL IM PRN (17:00)
[2022-01-11] MEDS ORDERED: D50W 25 GM/50 ML SYRINGE IV PRN (17:00)
--- NOTE | 2022-01-11 17:09 | P.HP ---
Certification for Inpatient Patient admitted to: Observation With expected LOS: <2 Midnights Patient will require the following post-hospital care: None Practitioner: I am a practitioner with admitting privileges, knowledge of patient current condition, hospital course, and medical plan of care. Services: Services provided to patient in accordance with Admission requirements found in Title 42 Section 412.3 of the Code of Federal Regulations Patient History Date of Service: 01/11/22 Primary Care Provider: Светлана Mendoza Reason for admission: acute on chronic renal failure. History of Present Illness: Patient had blood work [facility] yesterday. He had an elevation of his creatine from 1.9 to 2.7. With a resultant drop in his gfr. Had discussed the patient with Dr. Mayo. Who requested the patient be worked up in the hospital. The patient stated he had smoked crack/cocaine the night before his labs. he has a history of cocaine use. His creatine is improving. However would like to admit him for fluids and to recheck his creatine to see that he is indeed improving. Have discussed the patient with Dr. Mireles Review of Systems 10-point ROS is otherwise unremarkable Physical Examination - Physical Exam General: Alert, In no apparent distress HEENT: Atraumatic, PERRLA, Mucous membr. moist/pink, EOMI, Sclerae nonicteric Neck: Supple, 2+ carotid pulse no bruit, No LAD, Without JVD or thyroid abnormality Respiratory: Clear to auscultation bilaterally, Normal air movement Cardiovascular: Regular rate/rhythm, Normal S1 S2 Gastrointestinal: Normal bowel sounds, No tenderness Musculoskeletal: No tenderness Integumentary: No rashes Neurological: Normal gait, Normal speech, Normal strength at 5/5 x4 extr, Normal tone, Normal affect Lymphatics: No axilla or inguinal lymphadenopathy - Studies Laboratory Data (last 24 hrs) 01/11/22 15:25: PT 10.9, INR 0.99 01/11/22 15:25: WBC 12.4 H, Hgb 13.2 L, Hct 41.3, Plt Count 224 01/11/22 15:25: Sodium 139, Potassium 5.6 H*, BUN 48 H, Creatinine 2.36 H, Glucose 99, Magnesium 2.6 H, Total Bilirubin 0.3, AST 16, ALT 27, Alkaline Phosphatase 98 Assessment and Plan - Problems (Diagnosis) (1) Acute on chronic renal failure Current Visit: Yes Status: Acute Plan: Patient had an improvement from yesterday. However would be safest to admit and hydrate the patient gently. Will order a u/a and creatine kinase. Will check and ultrasound. Consult to Dr. Mireles Qualifiers: Acute renal failure type: unspecified Chronic kidney disease stage: stage 4 (severe) Qualified Code(s): N17.9 - Acute kidney failure, unspecified; N18.4 - Chronic kidney disease, stage 4 (severe) (2) HIV (human immunodeficiency virus infection) Current Visit: Yes Status: Chronic Plan: His cd4 was 1300 yesterday. Viral load pending. He is on biktarvy. Will have him take his home medications. If he improves with hydration he can stay on this medication. Qualifiers: HIV symptom status: asymptomatic, with no history of HIV-related illness Qualified Code(s): Z21 - Asymptomatic human immunodeficiency virus [HIV] infection status (3) DM2 (diabetes mellitus, type 2) Current Visit: Yes Status: Chronic Plan: we can keep him on an insuling sliding scale and his home trajendta. His a1c is 6.9 So good control Qualifiers: Diabetes mellitus mcfp insulin use: without intermediate designer use Diabetes mellitus complication status: without complication Qualified Code(s): E11.9 - Type 2 diabetes mellitus without complications (4) HTN (hypertension) Current Visit: Yes Status: Chronic Plan: we can restart his lisinopril when his kidney function improves. Control with hydralazine Qualifiers: Hypertension type: primary hypertension Qualified Code(s): I10 - Essential (primary) hypertension (5) Hyperlipidemia Current Visit: Yes Status: Chronic Plan: continue the patient on atorvastin Qualifiers: Hyperlipidemia type: mixed hyperlipidemia Qualified Code(s): E78.2 - Mixed hyperlipidemia (6) Cocaine abuse Current Visit: Yes Status: Acute Discharge Plan: Home Plan to discharge in: 24 Hours - Advance Directives Does patient have a Living Will: No Does patient have a Durable POA for Healthcare: No - Code Status/Comfort Care Code Status Assessed: No Code Status: Full Code Physician Review: Patient Assessed, Agree with Above Assessment and Plan Critical Care: No Time Spent Managing Pts Care (In Minutes): 60
[2022-01-11] MEDS ORDERED: D10W 125 ML IV PRN (17:19)
[2022-01-11] MEDS ORDERED: NA CHLORIDE 0.9% 1,000 ML ONE (18:43)
--- NOTE | 2022-01-11 18:45 | RAD REPORT ---
EXAM DESCRIPTION: US - Renal Ultrasound-Complete - 01/11/2022 6:27 pm CLINICAL HISTORY: acute on chronic renal failure COMPARISON: [facility] dated 09/28/2013 FINDINGS: Both kidneys are normal in size, shape and echotexture. The right kidney measures 10.4 cm. No hydronephrosis, focal mass or perinephric fluid. The left kidney measures 9.9 cm. No hydronephrosis, focal mass or perinephric fluid. The urinary bladder is incompletely distended without gross abnormality seen. IMPRESSION: No evidence of hydronephrosis. The exam is unremarkable.
[2022-01-11] MEDS ORDERED: ATORVASTATIN 40 MG TAB PO SCH (21:00)
[2022-01-11 22:15] VITALS: BMI 37.8
[2022-01-11] MEDS: INSULIN -REGULAR HUMAN 50 UNIT/0.5 ML ML SQ SCH (22:29)
[2022-01-11] MEDS: NA CHLORIDE 0.9% 1,000 ML IV SCH (22:30)
[2022-01-11 22:59] LABS: Urine Appearance Clear (Clear); Urine Bilirubin Negative (Negative); Urine Blood Trace-lysed (Negative); Urine Color Yellow (Yellow); Urine Glucose Negative (Negative); Urine Protein Negative (Negative); Urine Urobilinogen 0.2 mg/dL (0.2-1.0); Urine pH 5.5 (5.0-7.0)
[2022-01-11 23:11] LABS: UR PROTEIN 34.3 mg/dL (<11.9); Urine Protein/Creatinine Ratio 0.47 ratio (<0.15)
[2022-01-11 23:28] LABS: Urine Microscopic Reflex ORDER UMIC
[2022-01-11 23:29] LABS: Urine Bacteria <20 /HPF (NONE SEEN); Urine RBC <5 /HPF (NONE SEEN)
[2022-01-12 05:49] LABS: Absolute Lymphocytes (CBC) 2.5 K/uL (0.7-4.9); Hematocrit 38.9 % (39.6-49.0); Lymphocytes % 21.6 % (15.3-44.8); MPV 9.9 fL (7.6-11.3); RBC Red Blood Cell Count 4.07 M/uL (4.33-5.43)
[2022-01-12 06:19] LABS: Albumin 3.2 g/dL (3.4-5.0); Bilirubin Total 0.3 mg/dL (0.2-1.0); Protein, Total 7.2 g/dL (6.4-8.2)
[2022-01-12] MEDS: NA CHLORIDE 0.9% 1,000 ML IV SCH (06:20)
[2022-01-12 06:22] LABS: Potassium 6.1 mmol/L (3.5-5.1)
[2022-01-12] MEDS: INSULIN -REGULAR HUMAN 50 UNIT/0.5 ML ML SQ SCH ×2 (07:30→11:30)
--- NOTE | 2022-01-12 08:23 | P.DS ---
Admission Date: 01/11/22 Discharge Date: 01/12/22 Primary Care Provider: Светлана Mendoza Disposition: ROUTINE DISCHARGE Discharge Condition: GOOD Reason for Admission: acute on chronic renal failure. - Problems (1) Acute on chronic renal failure Current Visit: Yes Status: Acute Qualifiers: Acute renal failure type: unspecified Chronic kidney disease stage: stage 4 (severe) Qualified Code(s): N17.9 - Acute kidney failure, unspecified; N18.4 - Chronic kidney disease, stage 4 (severe) (2) HIV (human immunodeficiency virus infection) Current Visit: Yes Status: Chronic Qualifiers: HIV symptom status: asymptomatic, with no history of HIV-related illness Qualified Code(s): Z21 - Asymptomatic human immunodeficiency virus [HIV] infection status (3) DM2 (diabetes mellitus, type 2) Current Visit: Yes Status: Chronic Qualifiers: Diabetes mellitus termite control representative insulin use: without termite control representative use Diabetes mellitus complication status: without complication Qualified Code(s): E11.9 - Type 2 diabetes mellitus without complications (4) HTN (hypertension) Current Visit: Yes Status: Chronic Qualifiers: Hypertension type: primary hypertension Qualified Code(s): I10 - Essential (primary) hypertension (5) Hyperlipidemia Current Visit: Yes Status: Chronic Qualifiers: Hyperlipidemia type: mixed hyperlipidemia Qualified Code(s): E78.2 - Mixed hyperlipidemia (6) Cocaine abuse Current Visit: Yes Status: Acute Brief History of Present Illness: Patient had blood work drawn at [facility] yesterday. He had an elevation of his creatine from 1.9 to 2.7. With a resultant drop in his gfr. Had discussed the patient with Dr. Mayo. Who requested the patient be worked up in the hospital. The patient stated he had smoked crack/cocaine the night before his labs. he has a history of cocaine use. His creatine is improving. However would like to admit him for fluids and to recheck his creatine to see that he is indeed improving. Have discussed the patient with Dr. Mireles Hospital Course: Patient admitted. Started on fluids. He has a normal ultrasound. Will continue him on fluids and recheck his potassium at noon. If normal and ok with Dr. Mireles we can safely discharge him Vital Signs/Physical Exam: Temp Pulse Resp BP Pulse Ox 96.8 F 64 19 123/65 98 01/12/22 04:00 01/12/22 04:00 01/12/22 04:00 01/12/22 04:00 01/12/22 04:00 General: Alert, In no apparent distress HEENT: Atraumatic, PERRLA, EOMI Neck: Supple, JVD not distended Respiratory: Clear to auscultation bilaterally, Normal air movement Cardiovascular: Regular rate/rhythm, Normal S1 S2 Gastrointestinal: Normal bowel sounds, No tenderness Musculoskeletal: No tenderness Integumentary: No rashes Neurological: Normal speech, Normal tone, Normal affect Lymphatics: No axilla or inguinal lymphadenopathy Laboratory Data at Discharge: WBC 11.7 K/uL (4.3-10.9) H 01/12/22 05:35 Hgb 12.4 g/dL (13.6-17.9) L 01/12/22 05:35 Hct 38.9 % (39.6-49.0) L 01/12/22 05:35 Plt Count 203 K/uL (152-406) 01/12/22 05:35 PT 10.9 SECONDS (9.5-12.5) 01/11/22 15:25 INR 0.99 01/11/22 15:25 Sodium 142 mmol/L (136-145) 01/12/22 05:35 Potassium 6.1 mmol/L (3.5-5.1) H* 01/12/22 05:35 BUN 42 mg/dL (7-18) H 01/12/22 05:35 Creatinine 1.94 mg/dL (0.55-1.3) H 01/12/22 05:35 Glucose 112 mg/dL (74-106) H 01/12/22 05:35 Magnesium 2.6 mg/dL (1.8-2.4) H 01/11/22 15:25 Total Bilirubin 0.3 mg/dL (0.2-1.0) 01/12/22 05:35 AST 18 U/L (15-37) 01/12/22 05:35 ALT 23 U/L (12-78) 01/12/22 05:35 Alkaline Phosphatase 90 U/L (45-117) 01/12/22 05:35 Home Medications: Nitrofurantoin Macrocrystal [Macrodantin] 100 mg PO TID #9 capsule 01/12/22 New Medications: Nitrofurantoin Macrocrystal [Macrodantin] 100 mg PO TID #9 capsule Diet: ADA Activity: Ad amari Followup: Jo-Ann Mendoza FNP [facility] [ALLIED HEALTH PROFESSIONAL] - 1 Week Ceasar Villatoro MD [ACTIVE - CAN ADMIT] - 1 Week Time spent managing pt's care (in minutes): 30
[2022-01-12] MEDS ORDERED: NITROFURAN MACRO 100 MG CAP PO SCH (09:00)
[2022-01-12] MEDS ORDERED: ENOXAPARIN 30 MG/0.3 ML SQ SCH (09:00)
[2022-01-12 09:45] VITALS: O2SAT 95
[2022-01-12] MEDS ORDERED: NA CHLORIDE 0.9% 1,000 ML IV ONE (10:40)
[2022-01-12] MEDS ORDERED: FUROSEMIDE 40 MG/4 ML VIAL IV ONE (10:40)
[2022-01-12] MEDS ORDERED: ALBUTEROL 2.5 MG/3 ML NEB SOL NEB ONE (10:40)
[2022-01-12 10:59] VITALS: TEMP 97.5
[2022-01-12 11:03] VITALS: BP 146/67
[2022-01-12] MEDS ORDERED: NA CHLORIDE 0.9% 1,000 ML IV SCH (11:14)
[2022-01-12 12:42] LABS: Urine Appearance Clear (Clear); Urine Bilirubin Negative (Negative); Urine Blood Trace-intact (Negative); Urine Color Yellow (Yellow); Urine Glucose Negative (Negative); Urine Protein Negative (Negative); Urine Specific Gravity 1.015 (1.005-1.030); Urine Urobilinogen 0.2 mg/dL (0.2-1.0); Urine pH 5.5 (5.0-7.0)
[2022-01-12 12:43] LABS: Potassium 5.3 mmol/L (3.5-5.1)
[2022-01-12 12:46] LABS: Urine Microscopic Reflex ORDER UMIC
[2022-01-12 12:54] LABS: Urine Bacteria NONE SEEN /HPF (NONE SEEN); Urine RBC <5 /HPF (NONE SEEN)
--- NOTE | 2022-01-12 14:45 | CON ---
Date of Consultation: 01/12/2022 Reason For Consultation: Elevated BUN and creatinine, hyperkalemia. History Of Present Illness: This is a pleasant 61-year-old gentleman, well known to us from the office, follows up with Dr. Mayo, with significant past medical history of diabetes type 2 complicated with neuropathy, hyperlipidemia, ureteronephrolithiasis status post lithotripsy back in 2013, HIV on HAART, the patient known to have chronic kidney disease, nonproteinuric, baseline creatinine 1.9 and GFR of 36 as of September 2021 with marginal hyperkalemia. Has chronic kidney disease secondary to diabetes nephropathy/cocaine use, the patient apparently came to the primary care. Primary lab showed creatinine 2.9 with hyperkalemia 5.6. The patient directed for admission. Upon arrival to the ER yesterday, potassium down to 5.6 with creatinine down to 0.3. Because of the hyperkalemia, we advised for admission for the patient. Over the night, the patient was started on IV hydration. The patient admits that he used cocaine day before. Repeated lab today morning; potassium rise to 6.1, creatinine back to baseline 1.9 with GFR of 43. The patient admits that he is eating a lot of fruit including banana. Home Medications: The patient is on lisinopril. Past Medical History: Includes; 1. Diabetes complicated with neuropathy, nephropathy. 2. Hypertension. 3. Hyperlipidemia. 4. HIV, on HAART. 5. Chronic hyperkalemia. Allergies: NO KNOWN DRUG ALLERGIES. Social History: Denies smoking. Occasional alcohol. Positive for drug use. Family History: Positive for diabetes, kidney disease, and hypertension. Past Surgical History: Includes orthopedic surgery. Review of Systems: Head and Neck: No red eye. No ear pain. GI: No nausea. No vomiting. : No polyuria. No dysuria. No hematuria. Head Porter: Not applicable. Respiratory: No shortness of breath. Cardiovascular: No chest pain. Endocrine: No polydipsia. Skin: No rash. Neuro: Has neuropathy. Musculoskeletal: Generalized body ache. Physical Examination: Vital Signs: When I saw the patient; blood pressure 146/67, pulse of 62, afebrile. Chest: Clear to auscultation. Heart: S1, S2. Regular. Abdomen: Soft, nontender. Extremity: No edema. Neurological: Alert and oriented x3. No focal. Laboratory Data: Upon admission; WBC 12.4, H and H 13.2/41.3. Sodium 139, potassium 5.6, bicarb 22, BUN 48, creatinine 2.3, GFR of 34, calcium 8.7, magnesium 2.6, albumin 3.7. Current lab data; sodium 142, potassium 6.1, bicarb 22, BUN 42, creatinine 1.9, GFR of 43, calcium 8.7. WBC 11.7, H and H 12.4/38.9. CK 262. Uric acid elevated. Urinalysis; specific gravity of 1.010, WBC of 20. Current Medications: The patient on include; 1. Nitrofurantoin. 2. Macrobid. 3. Lovenox. 4. Atorvastatin. 5. Hydralazine. 6. Normal saline. Renal ultrasound showing normal-sized kidney 10.4 x 9.9. Assessment And Plan: 1. Acute kidney injury secondary to prerenal, dehydration secondary to possible poorly controlled diabetes, superimposed with cocaine use and NORMA inhibitor use, complicated with hyperkalemia, nonoliguric. I am going to go ahead and continue IV hydration for the patient and we will continue to monitor given the recurrent hyperkalemia to rule out any RTA in the presence of HIV and diabetes, questionable of RTA. I am going to go ahead and send for urine electrolyte to evaluate for transtubular potassium gradient. I am going to repeat TSH and cortisol and we will follow up. 2. Hyperkalemia, persists with elevation with history of HIV and diabetes to rule out any RTA. I am going to treat the patient aggressively. We will bolus the patient with 1 L of normal saline, then we will give him 40 of Lasix to establish more potassium diuresis. We will send for urine electrolyte to evaluate for transtubular potassium gradient and urine anion gap to evaluate for RTA and we will follow up. We will repeat the chemistry 2 hours after giving this cocktail to evaluate if potassium normalized. The patient is okay from the Renal standpoint for discharge planning. If not, the patient needs to be monitored. 3. Hypertension with the presence of acute kidney injury and hyperkalemia. I am going to go ahead and hold the lisinopril and we will follow up. 4. Diabetes as by primary. 5. HIV as by primary. 6. Urinary tract infection. The patient was started on nitrofurantoin. We will switch the patient to Levaquin. time spend exam the patient face to face diswcussing with patient, placing order , reviewing the data , discussing the case with steam shovel oiler including nursing and hospitalist 65min LONI Voice ID: [id number] Report ID: [id number]
[2022-01-12] MEDS ORDERED: AMOX/K CLAV 875 MG TAB PO SCH (21:00)
== END 2022-01-12 14:50 | disposition home or self-care (01) ==
LOC: ER 13:05 → SUPCPDRO 13:05 → ERHOLD 17:09 → 2ND 20:45
PROVIDERS: ADMIT Internal Medicine; ATTEND Internal Medicine
DX: N17.9 Acute kidney failure, unspecified (principal); I12.9 Hypertensive chronic kidney disease with stage 1 through stage 4 chronic kidney disease, or unspecified chronic kidney disease; E11.22 Type 2 diabetes mellitus with diabetic chronic kidney disease; N18.4 Chronic kidney disease, stage 4 (severe); E86.0 Dehydration; E87.5 Hyperkalemia; N39.0 Urinary tract infection, site not specified; F14.10 Cocaine abuse, uncomplicated; E78.5 Hyperlipidemia, unspecified; E11.40 Type 2 diabetes mellitus with diabetic neuropathy, unspecified; E11.21 Type 2 diabetes mellitus with diabetic nephropathy; Z79.899 Other long term (current) drug therapy; Z20.822 Contact with and (suspected) exposure to COVID-19
CPT/HCPCS: 93005; 87088; 85025 ×2; 87086; 80048 ×2; 36415; 82435; 83735; 82550; 84132; 85610; 84300; 82947 ×3; 80076; 82570; 84484; 80053; 82533; 83880; 83935; 84156; 76770; 94640; 96360; 99285; U0003; J1815; J1940; J1650; J7040; J7030 ×3; G0378 ×3; 81003; 81015; J0360